=== PATIENT | female | born 1935 | race Caucasian/White ===

== ENCOUNTER → 2016-06-09 | Outpatient (CLI) | payer MEDICARE, OTHER ==
[~2016-06-09] MED LIST: ATOR20TA OR; ESOM20CA OR; POTA-167 OR; ZOLP10TA OR
[2016-06-09 16:22] LABS: Basophils # (auto) 0.1 uL; Basophils % (auto) 0.9 % (0.0-2.0); Eosinophils # (auto) 0.3 uL; Eosinophils % (auto) 4.9 % (0.0-7.0); Hematocrit 36.3 % (36.0-46.0); Lymphocytes # (auto) 1.6 uL; Lymphocytes % (auto) 26.6 % (10.0-50.0); Mean Corpuscular Hemoglobin 31.5 pg (28.0-32.0); Mean Corpuscular Volume 95.5 fL (80.0-100.0); Mean Platelet Volume 10.6 fL (7.4-10.4); Monocytes # (auto) 0.3 uL; Monocytes % (auto) 4.5 % (0.0-12.0); Neutrophils # (auto) 3.7 uL; Neutrophils % (auto) 63.1 % (37.0-80.0); Platelet Count (auto) 240 10^3/uL (140-450); Red Cell Distribution Width 14.2 % (11.6-16.0); Reticulocyte Count 1.06 % (0.5-1.5); White Blood Cell 5.9 10^3/uL (4.4-10.8)
[2016-06-09 17:12] LABS: Albumin 4.1 g/dL (3.4-5.0); Bilirubin, Direct 0.2 mg/dL (0-0.2); Bilirubin, Total 0.5 mg/dL (0.2-1.0); Total Protein 7.6 g/dL (6.4-8.2)
== END | disposition home or self-care (01) ==
LOC: Rad HDHVI 14:21
PROVIDERS: ATTEND Internal Medicine Cardiovascular Disease
DX: E78.00 Pure hypercholesterolemia, unspecified (principal); K74.1 Hepatic sclerosis; E03.9 Hypothyroidism, unspecified; D64.9 Anemia, unspecified
CPT/HCPCS: 36415; 80061; 80076; 84439; 84443; 85025; 85045; 93306

== ENCOUNTER → 2016-06-22 | Outpatient (CLI) | payer MEDICARE, OTHER ==
[~2016-06-22] MED LIST changes: +ADENOSINE 70 MG in GIVE UN-DILUTED 0 ML IV ONE; +ADENOSINE 90 MG/30 ML INJ IV ONE
== END | disposition home or self-care (01) ==
LOC: Rad HDHVI 13:46
PROVIDERS: ATTEND Internal Medicine Cardiovascular Disease
DX: R07.9 Chest pain, unspecified (principal); I10 Essential (primary) hypertension; I25.10 Atherosclerotic heart disease of native coronary artery without angina pectoris; J44.9 Chronic obstructive pulmonary disease, unspecified; E78.00 Pure hypercholesterolemia, unspecified
CPT/HCPCS: 78452; 93005; 96374; 96375; A9500; J0153

== ENCOUNTER → 2016-09-14 | Outpatient (CLI) | payer MEDICARE, OTHER ==
[~2016-09-14] MED LIST changes: -ADENOSINE 70 MG in GIVE UN-DILUTED 0 ML IV ONE; -ADENOSINE 90 MG/30 ML INJ IV ONE; +SODIUM CHLORIDE 0.9% 500 ML IV ONE
[2016-09-14 15:15] VITALS: BP 113/56
[2016-09-14 16:20] LABS: Basophils # (auto) 0.1 uL; Basophils % (auto) 1.7 % (0.0-2.0); CONDITION Y; Eosinophils # (auto) 0.3 uL; Eosinophils % (auto) 4.4 % (0.0-7.0); Hematocrit 36.1 % (36.0-46.0); Hemoglobin 11.9 g/dL (12.2-16.2); Lymphocytes # (auto) 2.3 uL; Lymphocytes % (auto) 35.4 % (10.0-50.0); Mean Corpuscular Hemoglobin 31.5 pg (28.0-32.0); Mean Corpuscular Hgb Conc. 32.9 g/dL (32.0-36.0); Mean Corpuscular Volume 95.5 fL (80.0-100.0); Mean Platelet Volume 12.1 fL (7.4-10.4); Monocytes # (auto) 0.5 uL; Monocytes % (auto) 8.2 % (0.0-12.0); Neutrophils # (auto) 3.3 uL; Neutrophils % (auto) 50.3 % (37.0-80.0); Platelet Count (auto) 167 10^3/uL (140-450); Red Cell Distribution Width 13.4 % (11.6-16.0); SUSPECT SEE PRINTOUT; White Blood Cell 6.5 10^3/uL (4.4-10.8)
[2016-09-14 16:41] LABS: BUN/Creatinine Ratio 18.1; Calcium 9.1 mg/dL (8.5-10.1); Potassium 4.9 mmol/L (3.5-5.1)
[2016-09-14 17:30] VITALS: BP 101/61
== END | disposition home or self-care (01) ==
LOC: CHF HDHVI 15:15
PROVIDERS: ATTEND Internal Medicine Cardiovascular Disease
DX: I10 Essential (primary) hypertension (principal); D64.9 Anemia, unspecified
CPT/HCPCS: 36415; 80048; 85025; 96360; 96361; G0463

== ENCOUNTER → 2016-09-18 | Outpatient (CLI) | payer MEDICARE, OTHER ==
[~2016-09-18] MED LIST changes: +ATO40T PO; +FERR325T PO; +OLME1TAB19 PO
[2016-09-18 15:45] VITALS: BP 128/65
[2016-09-18 16:59] LABS: Potassium 5.5 mmol/L (3.5-5.1)
== END | disposition home or self-care (01) ==
LOC: CHF HDHVI 14:14
PROVIDERS: ATTEND Internal Medicine Cardiovascular Disease
DX: N28.9 Disorder of kidney and ureter, unspecified (principal); R94.4 Abnormal results of kidney function studies; E87.6 Hypokalemia; I25.10 Atherosclerotic heart disease of native coronary artery without angina pectoris; R53.83 Other fatigue
CPT/HCPCS: 36415; 82565; 84132; 84520; 96360; G0463

== ENCOUNTER → 2016-09-23 | Outpatient (CLI) | payer MEDICARE, OTHER ==
[~2016-09-23] MED LIST changes: -SODIUM CHLORIDE 0.9% 500 ML IV ONE; +SODIUM POLYSTYRENE SULF 15GM/60ML SUSP ONE; +SODIUM POLYSTYRENE SULF 15GM/60ML SUSP PO ONE
[2016-09-23 12:00] VITALS: BP 115/61
[2016-09-23 12:30] VITALS: BP 133/68
[2016-09-23 17:13] LABS: Potassium 4.4 mmol/L (3.5-5.1)
== END | disposition home or self-care (01) ==
LOC: CHF HDHVI 12:02
PROVIDERS: ATTEND Internal Medicine Cardiovascular Disease
DX: N28.9 Disorder of kidney and ureter, unspecified (principal); R94.4 Abnormal results of kidney function studies; E87.5 Hyperkalemia; N17.9 Acute kidney failure, unspecified
CPT/HCPCS: 36415; 82565; 84132; 84520; G0463

== ENCOUNTER → 2016-10-01 | Outpatient (CLI) | payer MEDICARE, OTHER ==
[~2016-10-01] MED LIST changes: -ATOR20TA OR; -SODIUM POLYSTYRENE SULF 15GM/60ML SUSP ONE; -SODIUM POLYSTYRENE SULF 15GM/60ML SUSP PO ONE
== END | disposition home or self-care (01) ==
LOC: Rad HDHVI 15:07
PROVIDERS: ATTEND Internal Medicine Cardiovascular Disease
DX: R07.89 Other chest pain (principal)
CPT/HCPCS: 93306

== ENCOUNTER → 2017-08-04 | Outpatient (CLI) | payer MEDICARE, OTHER ==
[~2017-08-04] MED LIST changes: +ADENOSINE 70 MG in GIVE UN-DILUTED 0 ML IV ONE; +ADENOSINE 90 MG/30 ML INJ IV ONE; +FERR-20 PO; -FERR325T PO
== END | disposition home or self-care (01) ==
LOC: Rad HDHVI 13:41
PROVIDERS: ATTEND Internal Medicine Cardiovascular Disease
DX: I51.7 Cardiomegaly (principal); J44.9 Chronic obstructive pulmonary disease, unspecified; K52.9 Noninfective gastroenteritis and colitis, unspecified; N28.9 Disorder of kidney and ureter, unspecified; I10 Essential (primary) hypertension; E03.9 Hypothyroidism, unspecified; E78.00 Pure hypercholesterolemia, unspecified
CPT/HCPCS: 78452; 93005; 93306; 96374; 96375; A9500; J0153

== ENCOUNTER → 2017-08-25 | Outpatient (CLI) | payer MEDICARE, OTHER ==
[~2017-08-25] MED LIST changes: -ADENOSINE 70 MG in GIVE UN-DILUTED 0 ML IV ONE; -ADENOSINE 90 MG/30 ML INJ IV ONE
== END | disposition home or self-care (01) ==
LOC: Rad HDHVI 15:10
PROVIDERS: ATTEND Internal Medicine Cardiovascular Disease
DX: M50.222 Other cervical disc displacement at C5-C6 level (principal); M25.78 Osteophyte, vertebrae; M48.02 Spinal stenosis, cervical region; I10 Essential (primary) hypertension; E03.9 Hypothyroidism, unspecified; J44.9 Chronic obstructive pulmonary disease, unspecified
CPT/HCPCS: 72125

== ENCOUNTER 2017-09-21 06:33 | Inpatient (IN) | payer MEDICARE, OTHER ==
[2017-09-17 15:55] LABS: Albumin 3.7 g/dL (3.4-5.0); BUN/Creatinine Ratio 26.3; Bilirubin, Total 0.5 mg/dL (0.2-1.0); Calcium 9.6 mg/dL (8.5-10.1); Potassium 3.9 mmol/L (3.5-5.1)
[2017-09-17 15:58] LABS: Basophils # (auto) 0.1 uL; Basophils % (auto) 1.2 % (0.0-2.0); Eosinophils # (auto) 0 uL; Eosinophils % (auto) 0.7 % (0.0-7.0); Hematocrit 37.6 % (36.0-46.0); Hemoglobin 12.7 g/dL (12.2-16.2); INR 0.93 (0.9-1.15); Lymphocytes # (auto) 1.6 uL; Lymphocytes % (auto) 22.9 % (10.0-50.0); Mean Corpuscular Hemoglobin 32.2 pg (28.0-32.0); Mean Corpuscular Hgb Conc. 33.7 g/dL (32.0-36.0); Mean Corpuscular Volume 95.4 fL (80.0-100.0); Monocytes # (auto) 0.6 uL; Monocytes % (auto) 9.5 % (0.0-12.0); Neutrophils # (auto) 4.5 uL; Neutrophils % (auto) 65.7 % (37.0-80.0); Partial Thromboplastin Time 29.6 sec (23.78-33.04); Platelet Count (auto) 281 10^3/uL (140-450); Red Blood Cells 3.94 10^6/uL (4.0-5.20); Red Cell Distribution Width 13.8 % (11.8-14.3); White Blood Cell 6.8 10^3/uL (4.4-10.8)
[~2017-09-21] VITALS: Ht 167.6 cm; Wt 98.6 kg
[~2017-09-21 06:33] MED LIST changes: +ASCO500T11 PO; +B-COCAP4 OR; +GINK500C PO; +OMEG120015 PO; +PANC1CAP30 PO; +VITA400T4 PO
[2017-09-21] MEDS ORDERED: ceFAZolin 1GM/50ML 50 ML IV ONE (06:42)
[2017-09-21] MEDS ORDERED: TETRACAINE 1% INJ 2 ML VIAL IJ ONE (07:02)
[2017-09-21] MEDS ORDERED: SUCCINYLCHOLINE CHLORIDE 20 MG/ML 10ML VIAL IV ONE ×2 (07:18→07:23)
[2017-09-21] MEDS ORDERED: ETOMIDATE (2MG/ML) 20ML VIAL IV ONE (07:18)
[2017-09-21] MEDS ORDERED: PHENYLEPHRINE HCL 10 MG/ML VL IV ONE (07:18)
[2017-09-21] MEDS ORDERED: MIDAZOLAM HCL 1MG/1ML-2 ML VIAL ONE (07:36)
[2017-09-21] MEDS ORDERED: MEPERIDINE HCL (50 MG/ML) 1 ML VIAL ONE (07:36)
[2017-09-21] MEDS ORDERED: fentaNYL CITRATE 5 ML ONE (07:36)
[2017-09-21] MEDS ORDERED: fentaNYL CITRATE 100 MCG/2 ML VL ONE (07:36)
[2017-09-21] MEDS ORDERED: DEXAMETHASONE SOD PHOS 10MG/1ML VIAL INJ ONE (07:56)
[2017-09-21] MEDS ORDERED: ePHEDrine SULFATE 50 MG/ML AMP IV PRN (08:15)
[2017-09-21] MEDS ORDERED: MORPHINE SULF INJ 2 MG/ML SYRINGE 1ML IV PRN (08:15)
[2017-09-21] MEDS ORDERED: LABETALOL HCL 5 MG/ML 4ML SYRINGE IV PRN (08:15)
[2017-09-21] MEDS ORDERED: MIDAZOLAM HCL 1MG/1ML-2 ML VIAL IV PRN (08:15)
[2017-09-21] MEDS ORDERED: ONDANSETRON HCL 4 MG/2 ML VIAL IV ONE (08:15)
[2017-09-21] MEDS ORDERED: KETOROLAC TROMETH 30 MG/ML 1ML VIAL IV ONE (08:15)
[2017-09-21] MEDS ORDERED: PROPOFOL 10 MG/ML 20 ML IV ONE (08:19)
[2017-09-21] MEDS ORDERED: fentaNYL CITRATE 100 MCG/2 ML VL IV ONE (09:00)
[2017-09-21] MEDS ORDERED: LIDOCAINE W/ EPINEPHRINE 2% INJ 20ML VIAL ONE (09:00)
[2017-09-21] MEDS ORDERED: BUPIVACAINE HCL 50 ML ONE (09:00)
[2017-09-21] MEDS ORDERED: MORPHINE SULF INJ 2 MG/ML SYRINGE 1ML IV ONE (10:00)
[2017-09-21] MEDS ORDERED: LACTATED RINGER'S 1,000 ML IV SCH (10:57)
[2017-09-21] MEDS ORDERED: TEMAZEPAM 15 MG CAP PO PRN (11:00)
[2017-09-21] MEDS ORDERED: ACETAMINOPHEN 325 MG TAB PO PRN (11:00)
[2017-09-21] MEDS ORDERED: HYDROmorphone HCL 2 MG/ML VL IV PRN (11:00)
[2017-09-21] MEDS ORDERED: NITROGLYCERIN 0.4 MG SL TAB SL PRN (11:00)
[2017-09-21] MEDS: ceFAZolin 1GM/50ML 50 ML IV SCH ×2 (11:00→18:35)
[2017-09-21] MEDS: HYDROmorphone HCL 2 MG/ML VL IV PRN ×2 (11:25→11:35)
[2017-09-21 13:40] VITALS: BP 119/52
[2017-09-21] MEDS: SODIUM CHLOR 0.9% PF (SALINE LOCK) 10ML VIAL/SYR IV SCH ×2 (14:20→22:00)
[2017-09-21 14:21] VITALS: BP 119/52
[2017-09-21 17:18] VITALS: BP 108/48
[2017-09-21 21:36] VITALS: BP 90/31
[2017-09-21] MEDS: DOCUSATE SOD 100 MG CAP PO SCH (22:00)
[2017-09-22] MEDS: POTASSIUM CHL 10 Meq TABLET PO SCH ×2 (01:05→22:08)
[2017-09-22] MEDS: oxyCODONE ER 10 MG TAB PO SCH ×3 (01:05→22:09)
[2017-09-22] MEDS: FERROUS SULFATE 325 MG TAB PO SCH ×2 (01:05→22:09)
[2017-09-22] MEDS: ceFAZolin 1GM/50ML 50 ML IV SCH (01:06)
[2017-09-22] MEDS: ZOLPIDEM TARTRATE 5 MG TAB PO PRN (01:06)
[2017-09-22 04:40] VITALS: BP 92/49
[2017-09-22 06:26] LABS: Hematocrit 27.1 % (36.0-46.0); Hemoglobin 9.2 g/dL (12.2-16.2)
[2017-09-22] MEDS: SODIUM CHLOR 0.9% PF (SALINE LOCK) 10ML VIAL/SYR IV SCH ×3 (06:26→22:29)
[2017-09-22 06:31] LABS: BUN/Creatinine Ratio 25.2; Calcium 7.8 mg/dL (8.5-10.1); Potassium 4.1 mmol/L (3.5-5.1)
[2017-09-22] MEDS: MORPHINE SULF INJ 2 MG/ML SYRINGE 1ML IV PRN ×5 (07:51→20:29)
[2017-09-22 09:00] VITALS: BP 103/50
[2017-09-22] MEDS: ENOXAPARIN SOD 40 MG/0.4 ML SYRINGE SC SCH (11:16)
[2017-09-22] MEDS: DOCUSATE SOD 100 MG CAP PO SCH ×2 (11:16→22:10)
[2017-09-22 17:00] VITALS: BP 100/48
[2017-09-22 22:00] VITALS: BP 123/49
[2017-09-23] VITALS (10 sets, daily range): BP systolic 101–140; BP diastolic 45–72
[2017-09-23] MEDS: MORPHINE SULF INJ 2 MG/ML SYRINGE 1ML IV PRN ×7 (00:18→22:21)
[2017-09-23] MEDS: SODIUM CHLOR 0.9% PF (SALINE LOCK) 10ML VIAL/SYR IV SCH ×4 (05:10→22:21)
[2017-09-23 10:23] LABS: Hematocrit 25.7 % (36.0-46.0); Hemoglobin 8.7 g/dL (12.2-16.2)
[2017-09-23] MEDS: DOCUSATE SOD 100 MG CAP PO SCH ×2 (10:45→20:57)
[2017-09-23] MEDS: oxyCODONE ER 10 MG TAB PO SCH ×2 (10:45→20:58)
[2017-09-23] MEDS: ENOXAPARIN SOD 40 MG/0.4 ML SYRINGE SC SCH (10:45)
[2017-09-23] MEDS: ZOLPIDEM TARTRATE 5 MG TAB PO PRN (20:57)
[2017-09-23] MEDS: POTASSIUM CHL 10 Meq TABLET PO SCH (20:58)
[2017-09-23] MEDS: FERROUS SULFATE 325 MG TAB PO SCH (22:21)
[2017-09-24 05:00] VITALS: BP 124/61
[2017-09-24] MEDS: MORPHINE SULF INJ 2 MG/ML SYRINGE 1ML IV PRN ×4 (05:43→22:36)
[2017-09-24 06:53] LABS: BUN/Creatinine Ratio 20.4; Calcium 8.8 mg/dL (8.5-10.1); Potassium 4.3 mmol/L (3.5-5.1)
[2017-09-24 07:42] LABS: Hemoglobin 10.6 g/dL (12.2-16.2)
[2017-09-24 08:12] VITALS: BP 97/53
[2017-09-24] MEDS: ENOXAPARIN SOD 40 MG/0.4 ML SYRINGE SC SCH (09:44)
[2017-09-24] MEDS: oxyCODONE ER 10 MG TAB PO SCH ×2 (09:45→21:09)
[2017-09-24] MEDS: DOCUSATE SOD 100 MG CAP PO SCH ×2 (09:45→21:09)
[2017-09-24 12:02] VITALS: BP 114/62
[2017-09-24] MEDS: SODIUM CHLOR 0.9% PF (SALINE LOCK) 10ML VIAL/SYR IV SCH ×2 (12:22→14:33)
[2017-09-24] MEDS: HYDROcodone-ACET 10/325MG TAB PO PRN (14:54)
[2017-09-24 16:26] VITALS: BP 115/68
[2017-09-24] MEDS: POTASSIUM CHL 10 Meq TABLET PO SCH (21:09)
[2017-09-24] MEDS: FERROUS SULFATE 325 MG TAB PO SCH (21:09)
[2017-09-24 22:00] VITALS: BP 103/53
[2017-09-25] MEDS: MORPHINE SULF INJ 2 MG/ML SYRINGE 1ML IV PRN ×2 (03:29→20:22)
[2017-09-25 06:00] VITALS: BP 106/53
[2017-09-25] MEDS: SODIUM CHLOR 0.9% PF (SALINE LOCK) 10ML VIAL/SYR IV SCH ×3 (06:17→21:32)
[2017-09-25 06:42] LABS: Hematocrit 29.4 % (36.0-46.0); Hemoglobin 9.9 g/dL (12.2-16.2)
[2017-09-25 09:00] VITALS: BP 112/47
[2017-09-25] MEDS: DOCUSATE SOD 100 MG CAP PO SCH ×2 (09:18→21:32)
[2017-09-25] MEDS: oxyCODONE ER 10 MG TAB PO SCH ×2 (09:18→21:32)
[2017-09-25] MEDS: ENOXAPARIN SOD 40 MG/0.4 ML SYRINGE SC SCH (09:19)
[2017-09-25 13:19] VITALS: BP 114/60
[2017-09-25] MEDS: HYDROcodone-ACET 10/325MG TAB PO PRN (14:21)
[2017-09-25 17:00] VITALS: BP_SYST 109; BP_SYST 114; BP_DIAS 60
[2017-09-25] MEDS ORDERED: HYDROmorphone HCL 2 MG/ML VL IM PRN (17:15)
[2017-09-25 20:00] VITALS: BP 118/58
[2017-09-25] MEDS: FERROUS SULFATE 325 MG TAB PO SCH (21:32)
[2017-09-25] MEDS: POTASSIUM CHL 10 Meq TABLET PO SCH (21:33)
[2017-09-25 22:08] VITALS: BP 118/58
[2017-09-26] VITALS (7 sets, daily range): BP systolic 114–122; BP diastolic 51–64
[2017-09-26] MEDS ORDERED: diphenhdrAMINE HCL 25 MG CAP PO ONE (01:00)
[2017-09-26] MEDS: MORPHINE SULF INJ 2 MG/ML SYRINGE 1ML IV PRN ×5 (01:31→22:36)
[2017-09-26] MEDS: SODIUM CHLOR 0.9% PF (SALINE LOCK) 10ML VIAL/SYR IV SCH ×3 (06:08→22:12)
[2017-09-26] MEDS: DOCUSATE SOD 100 MG CAP PO SCH ×2 (09:55→22:12)
[2017-09-26] MEDS: oxyCODONE ER 10 MG TAB PO SCH ×2 (09:55→22:12)
[2017-09-26] MEDS: ENOXAPARIN SOD 40 MG/0.4 ML SYRINGE SC SCH (09:55)
[2017-09-26] MEDS ORDERED: ONDANSETRON ODT 4 MG TAB PO PRN (12:00)
[2017-09-26] MEDS: HYDROcodone-ACET 10/325MG TAB PO PRN (18:06)
[2017-09-26] MEDS: POTASSIUM CHL 10 Meq TABLET PO SCH (22:12)
[2017-09-26] MEDS: FERROUS SULFATE 325 MG TAB PO SCH (22:13)
[2017-09-27] MEDS: HYDROcodone-ACET 10/325MG TAB PO PRN ×4 (00:48→21:06)
[2017-09-27] MEDS: MORPHINE SULF INJ 2 MG/ML SYRINGE 1ML IV PRN (03:54)
[2017-09-27 05:00] VITALS: BP 116/59
[2017-09-27] MEDS: SODIUM CHLOR 0.9% PF (SALINE LOCK) 10ML VIAL/SYR IV SCH ×3 (06:08→23:00)
[2017-09-27 08:35] VITALS: BP 105/57
[2017-09-27] MEDS: oxyCODONE ER 10 MG TAB PO SCH ×2 (09:38→23:00)
[2017-09-27] MEDS: DOCUSATE SOD 100 MG CAP PO SCH ×2 (09:38→23:35)
[2017-09-27] MEDS: ENOXAPARIN SOD 40 MG/0.4 ML SYRINGE SC SCH (09:38)
[2017-09-27 13:47] VITALS: BP 112/51
[2017-09-27 17:01] VITALS: BP 108/56
[2017-09-27 22:00] VITALS: BP 105/57
[2017-09-27] MEDS: POTASSIUM CHL 10 Meq TABLET PO SCH (23:00)
[2017-09-27] MEDS: FERROUS SULFATE 325 MG TAB PO SCH (23:00)
[2017-09-28 05:00] VITALS: BP 124/48
[2017-09-28] MEDS: SODIUM CHLOR 0.9% PF (SALINE LOCK) 10ML VIAL/SYR IV SCH ×3 (05:53→21:41)
[2017-09-28] MEDS: HYDROcodone-ACET 10/325MG TAB PO PRN (08:21)
[2017-09-28 08:47] VITALS: BP 119/62
[2017-09-28] MEDS: DOCUSATE SOD 100 MG CAP PO SCH ×2 (10:40→21:40)
[2017-09-28] MEDS: oxyCODONE ER 10 MG TAB PO SCH ×2 (10:40→21:41)
[2017-09-28] MEDS: ENOXAPARIN SOD 40 MG/0.4 ML SYRINGE SC SCH (10:40)
[2017-09-28 12:06] VITALS: BP 116/68
[2017-09-28] MEDS ORDERED: diphenhdrAMINE HCL 25 MG CAP PO PRN (14:30)
[2017-09-28 16:50] VITALS: BP 110/55
[2017-09-28] MEDS: Nepro With Carbsteady ButterPecan 8oz Carton PO SCH (17:36)
[2017-09-28] MEDS: FERROUS SULFATE 325 MG TAB PO SCH (21:39)
[2017-09-28] MEDS: POTASSIUM CHL 10 Meq TABLET PO SCH (21:40)
[2017-09-28 22:00] VITALS: BP 113/53
[2017-09-28] MEDS: ZOLPIDEM TARTRATE 5 MG TAB PO PRN (23:08)
[2017-09-28] MEDS: ONDANSETRON ODT 4 MG TAB PO PRN (23:08)
[2017-09-29 05:00] VITALS: BP 123/64
[2017-09-29] MEDS: SODIUM CHLOR 0.9% PF (SALINE LOCK) 10ML VIAL/SYR IV SCH ×4 (05:58→21:45)
[2017-09-29] MEDS: Nepro With Carbsteady ButterPecan 8oz Carton PO SCH ×3 (08:00→17:52)
[2017-09-29 09:00] VITALS: BP 121/60
[2017-09-29] MEDS: DOCUSATE SOD 100 MG CAP PO SCH ×2 (09:03→21:42)
[2017-09-29] MEDS: ENOXAPARIN SOD 40 MG/0.4 ML SYRINGE SC SCH (09:04)
[2017-09-29] MEDS: oxyCODONE ER 10 MG TAB PO SCH ×2 (09:04→21:40)
[2017-09-29 13:00] VITALS: BP 104/49
[2017-09-29] MEDS: HYDROcodone-ACET 10/325MG TAB PO PRN ×2 (14:56→20:46)
[2017-09-29 17:00] VITALS: BP 102/51
[2017-09-29] MEDS: POTASSIUM CHL 10 Meq TABLET PO SCH (21:39)
[2017-09-29] MEDS: FERROUS SULFATE 325 MG TAB PO SCH (21:39)
[2017-09-29 22:00] VITALS: BP_SYST 121; BP_SYST 145; BP_DIAS 56; BP_DIAS 87
[2017-09-29] MEDS: ZOLPIDEM TARTRATE 5 MG TAB PO PRN (23:05)
[2017-09-29] MEDS: ONDANSETRON ODT 4 MG TAB PO PRN (23:05)
[2017-09-30 05:00] VITALS: BP 118/55
[2017-09-30] MEDS: HYDROcodone-ACET 10/325MG TAB PO PRN ×3 (06:51→16:42)
[2017-09-30] MEDS: Nepro With Carbsteady ButterPecan 8oz Carton PO SCH ×2 (08:00→12:00)
[2017-09-30 09:00] VITALS: BP 100/49
[2017-09-30] MEDS: DOCUSATE SOD 100 MG CAP PO SCH (09:43)
[2017-09-30] MEDS: ENOXAPARIN SOD 40 MG/0.4 ML SYRINGE SC SCH (09:43)
[2017-09-30] MEDS: oxyCODONE ER 10 MG TAB PO SCH (09:44)
[2017-09-30 13:00] VITALS: BP 103/47
[2017-09-30] MEDS: SODIUM CHLOR 0.9% PF (SALINE LOCK) 10ML VIAL/SYR IV SCH (14:00)
== END 2017-09-30 15:25 | disposition home or self-care (01) | DRG 470 ==
LOC: SUR 06:33 → TELE-CENTR 06:34
PROVIDERS: ADMIT Orthopaedic Surgery; ATTEND Internal Medicine Cardiovascular Disease
PROC: 0MBL0ZZ Excision of Right Hip Bursa and Ligament, Open Approach (ICD-10-PCS; 2017-09-21)
PROC: 0SR90JA Replacement of Right Hip Joint with Synthetic Substitute, Uncemented, Open Approach (ICD-10-PCS; principal; 2017-09-21 07:35)
PROC: 30233N1 Transfusion of Nonautologous Red Blood Cells into Peripheral Vein, Percutaneous Approach (ICD-10-PCS; 2017-09-23)
DX: M16.11 Unilateral primary osteoarthritis, right hip (principal); N18.4 Chronic kidney disease, stage 4 (severe); N17.9 Acute kidney failure, unspecified; E66.01 Morbid (severe) obesity due to excess calories; D63.8 Anemia in other chronic diseases classified elsewhere; I12.9 Hypertensive chronic kidney disease with stage 1 through stage 4 chronic kidney disease, or unspecified chronic kidney disease; G89.29 Other chronic pain; E78.5 Hyperlipidemia, unspecified; D50.0 Iron deficiency anemia secondary to blood loss (chronic); J44.9 Chronic obstructive pulmonary disease, unspecified; M70.61 Trochanteric bursitis, right hip; Z68.35 Body mass index [BMI] 35.0-35.9, adult
CPT/HCPCS: 36415; 73501; 80048; 80053; 85014; 85018; 85025; 85610; 85730; 86850; 86870; 86900; 86901; 86902; 86922; 97110; 97116; 97530; J0330; J0690; J1100; J1885; J2250; J2704; J3490; Q0162

== ENCOUNTER → 2017-12-01 | Outpatient (CLI) | payer MEDICARE, OTHER ==
[2017-12-01 16:13] LABS: Urine Blood Negative /uL (Negative); Urine Specific Gravity 1.006 (1.001-1.035)
[2017-12-01 16:26] LABS: Basophils # (auto) 0.2 uL; Basophils % (auto) 1.2 % (0.0-2.0); Eosinophils # (auto) 0.2 uL
[2017-12-01 16:33] LABS: Alanine Aminotransferase 27 U/L (13-56); Albumin 3.6 g/dL (3.4-5.0); Alkaline Phosphatase 114 U/L (45-117); Anion Gap 8 (5-15); Aspartate Aminotransferase 27 U/L (15-37); BUN/Creatinine Ratio 16.7; Bilirubin, Direct < 0.1 mg/dL (0-0.2); Bilirubin, Total 0.3 mg/dL (0.2-1.0); Blood Urea Nitrogen 20 mg/dL (7-18); Calcium 9.3 mg/dL (8.5-10.1); Carbon Dioxide 22 mmol/L (21-32); Chloride 106 mmol/L (98-107); GFR African American 56 mL/min; GFR Non-African American 46 mL/min; Glucose 98 mg/dL (74-106); Potassium 3.5 mmol/L (3.5-5.1); Sodium 136 mmol/L (136-145); Total Protein 8.2 g/dL (6.4-8.2)
[2017-12-01 16:42] LABS: Eosinophils % (auto) 1.2 % (0.0-7.0); Hematocrit 42.7 % (36.0-46.0); Hemoglobin 13.6 g/dL (12.2-16.2); Lymphocytes # (auto) 3.8 uL; Lymphocytes % (auto) 26.1 % (10.0-50.0); Mean Corpuscular Hemoglobin 28.9 pg (28.0-32.0); Mean Corpuscular Hgb Conc. 31.9 g/dL (32.0-36.0); Mean Corpuscular Volume 90.8 fL (80.0-100.0); Monocytes # (auto) 1.2 uL; Monocytes % (auto) 8.4 % (0.0-12.0); Neutrophils # (auto) 9.3 uL; Neutrophils % (auto) 63.1 % (37.0-80.0); Nucleated Red Blood Cells % 0.3 %; Platelet Count (auto) 431 10^3/uL (140-450); Red Blood Cells 4.71 10^6/uL (4.0-5.20); Red Cell Distribution Width 16.6 % (11.8-14.3); White Blood Cell 14.7 10^3/uL (4.4-10.8)
== END | disposition home or self-care (01) ==
LOC: LAB 13:18
PROVIDERS: ATTEND Internal Medicine Cardiovascular Disease
DX: D64.9 Anemia, unspecified (principal); I10 Essential (primary) hypertension; N39.0 Urinary tract infection, site not specified; K74.1 Hepatic sclerosis; J44.9 Chronic obstructive pulmonary disease, unspecified
CPT/HCPCS: 36415; 80048; 80076; 81003; 85025; 87086; 87088; 87186

== ENCOUNTER 2018-08-13 19:59 | Emergency (ER) | payer MEDICARE, OTHER ==
[~2018-08-13] VITALS: Ht 172.7 cm; Wt 72.6 kg
[2018-08-13 21:42] LABS: Basophils # (auto) 0.1 uL; Basophils % (auto) 0.7 % (0.0-2.0); Eosinophils # (auto) 0.1 uL; Eosinophils % (auto) 1.3 % (0.0-7.0); Hematocrit 43.3 % (36.0-46.0); Hemoglobin 14.6 g/dL (12.2-16.2); Lymphocytes # (auto) 2.3 uL; Lymphocytes % (auto) 26.4 % (10.0-50.0); Mean Corpuscular Hemoglobin 30.8 pg (28.0-32.0); Mean Corpuscular Hgb Conc. 33.7 g/dL (32.0-36.0); Mean Corpuscular Volume 91.3 fL (80.0-100.0); Monocytes # (auto) 0.6 uL; Monocytes % (auto) 6.7 % (0.0-12.0); Neutrophils # (auto) 5.6 uL; Neutrophils % (auto) 64.9 % (37.0-80.0); Platelet Count (auto) 216 10^3/uL (140-450); Red Blood Cells 4.74 10^6/uL (4.0-5.20); Red Cell Distribution Width 13.5 % (11.8-14.3); White Blood Cell 8.7 10^3/uL (4.4-10.8)
[2018-08-13 21:47] LABS: Alanine Aminotransferase 29 U/L (13-56); Albumin 3.9 g/dL (3.4-5.0); Anion Gap 10 (5-15); Aspartate Aminotransferase 25 U/L (15-37); Blood Urea Nitrogen 22 mg/dL (7-18); Calcium 9.7 mg/dL (8.5-10.1); Carbon Dioxide 26 mmol/L (21-32); Chloride 104 mmol/L (98-107); Glucose 100 mg/dL (74-106); Potassium 3.2 mmol/L (3.5-5.1); Sodium 140 mmol/L (136-145)
[2018-08-13 21:52] LABS: Alkaline Phosphatase 145 U/L (45-117); BUN/Creatinine Ratio 17.5; Bilirubin, Total 0.8 mg/dL (0.2-1.0); GFR African American 52 mL/min; GFR Non-African American 43 mL/min; Total Protein 7.9 g/dL (6.4-8.2)
[2018-08-14] MEDS ORDERED: SODIUM CHLORIDE 0.9% 500 ML IV ONE (00:33)
[2018-08-14] MEDS ORDERED: POTASSIUM CHL 20 Meq TABLET PO ONE (00:45)
[2018-08-14] MEDS ORDERED: LORazepam 0.5 MG TAB PO ONE (01:45)
[2018-08-14 03:45] VITALS: BP 132/78
== END 2018-08-14 06:13 | disposition home or self-care (01) ==
LOC: EDBD 19:59 → ER 20:01
DX: F41.9 Anxiety disorder, unspecified (principal); N28.9 Disorder of kidney and ureter, unspecified; M19.90 Unspecified osteoarthritis, unspecified site; J44.9 Chronic obstructive pulmonary disease, unspecified; E11.9 Type 2 diabetes mellitus without complications; I10 Essential (primary) hypertension; Z96.641 Presence of right artificial hip joint
CPT/HCPCS: 36415; 71045; 74018; 80053; 83690; 83880; 84484; 85025; 93005; 94761

== ENCOUNTER → 2018-10-05 | Outpatient (CLI) | payer MEDICARE, OTHER ==
[2018-10-05 15:46] LABS: Basophils # (auto) 0.1 uL; Basophils % (auto) 1.5 % (0.0-2.0); Eosinophils # (auto) 0.1 uL; Eosinophils % (auto) 2.1 % (0.0-7.0); Hematocrit 37.8 % (36.0-46.0); Hemoglobin 12.5 g/dL (12.2-16.2); Lymphocytes # (auto) 1.5 uL; Mean Corpuscular Hemoglobin 31.9 pg (28.0-32.0); Mean Corpuscular Hgb Conc. 33.1 g/dL (32.0-36.0); Mean Corpuscular Volume 96.1 fL (80.0-100.0); Monocytes # (auto) 0.4 uL; Monocytes % (auto) 7.9 % (0.0-12.0); Neutrophils # (auto) 3.1 uL; Neutrophils % (auto) 59.5 % (37.0-80.0); Nucleated Red Blood Cells % 0.2 %; Platelet Count (auto) 227 10^3/uL (140-450); Red Blood Cells 3.93 10^6/uL (4.0-5.20); Red Cell Distribution Width 16.1 % (11.8-14.3); White Blood Cell 5.3 10^3/uL (4.4-10.8)
[2018-10-05 16:04] LABS: BUN/Creatinine Ratio 10.9; Blood Urea Nitrogen 13 mg/dL (7-18); Calcium 9.1 mg/dL (8.5-10.1); Carbon Dioxide 22 mmol/L (21-32); GFR African American 56 mL/min; GFR Non-African American 46 mL/min; Glucose 81 mg/dL (74-106); Magnesium 1.6 mg/dL (1.6-2.6)
[2018-10-05 16:08] LABS: Anion Gap 10 (5-15); Chloride 108 mmol/L (98-107); Potassium 4.2 mmol/L (3.5-5.1); Sodium 140 mmol/L (136-145)
== END | disposition home or self-care (01) ==
LOC: LAB 13:56
PROVIDERS: ATTEND Internal Medicine Cardiovascular Disease
DX: D64.9 Anemia, unspecified (principal); E83.40 Disorders of magnesium metabolism, unspecified; I10 Essential (primary) hypertension
CPT/HCPCS: 36415; 80048; 83735; 85025

== ENCOUNTER → 2019-02-17 | Outpatient (CLI) | payer MEDICARE, OTHER ==
[2019-02-17 15:59] LABS: Urine Blood 1+ /uL (Negative); Urine Specific Gravity 1.013 (1.001-1.035)
== END | disposition home or self-care (01) ==
LOC: LAB 13:36
PROVIDERS: ATTEND Internal Medicine Cardiovascular Disease
DX: N39.0 Urinary tract infection, site not specified (principal); R77.9 Abnormality of plasma protein, unspecified
CPT/HCPCS: 81003; 84156; 84166; 87086

== ENCOUNTER → 2019-04-10 | Outpatient (CLI) | payer MEDICARE, OTHER ==
[2019-04-10 16:03] LABS: Urine Blood Negative /uL (Negative); Urine Specific Gravity 1.027 (1.001-1.035)
== END | disposition home or self-care (01) ==
LOC: LAB 12:41
PROVIDERS: ATTEND Internal Medicine Cardiovascular Disease
DX: N39.0 Urinary tract infection, site not specified (principal)
CPT/HCPCS: 81003; 87086

== ENCOUNTER → 2019-08-08 | Outpatient (CLI) | payer MEDICARE, OTHER ==
[~2019-08-08] MED LIST changes: +ALPR0.25 PO; -ESOM20CA OR; +ESOM20CA PO; -OLME1TAB19 PO; +OLME1TAB67 PO; -POTA-167 OR; +POTA-167 PO; +TRAM50TA2 PO; +UMEC1AER IN; +ZOLP12.52 PO
[2019-08-08 11:00] VITALS: BP 121/57
[2019-08-08 11:57] VITALS: BP 125/61
[2019-08-08 15:57] LABS: Basophils # (auto) 0.1 10 ^3/uL (0-0.2); Eosinophils # (auto) 0.1 10 ^3/uL (0-0.8); Eosinophils % (auto) 1.3 % (0.0-7.0); Hematocrit 38.9 % (36.0-46.0); Hemoglobin 12.6 g/dL (12.2-16.2); Lymphocytes # (auto) 1.4 10 ^3/uL (0.4-5.4); Lymphocytes % (auto) 26.2 % (10.0-50.0); Mean Corpuscular Hemoglobin 31.8 pg (28.0-32.0); Mean Corpuscular Hgb Conc. 32.5 g/dL (32.0-36.0); Monocytes # (auto) 0.6 10 ^3/uL (0-1.3); Monocytes % (auto) 10.6 % (0.0-12.0); Neutrophils # (auto) 3.4 10 ^3/uL (1.6-8.6); Neutrophils % (auto) 60.9 % (37.0-80.0); Nucleated Red Blood Cells % 0.1 %; Platelet Count (auto) 219 10^3/uL (140-450); Red Blood Cells 3.97 10^6/uL (4.0-5.20); Red Cell Distribution Width 13.7 % (11.8-14.3); White Blood Cell 5.5 10^3/uL (4.4-10.8)
[2019-08-08 16:09] LABS: BUN/Creatinine Ratio 13.7
[2019-08-08 16:27] LABS: INR 1.01 (0.9-1.15); Partial Thromboplastin Time 28.2 sec (23.64-32.05)
== END | disposition home or self-care (01) ==
LOC: Rad HDHVI 11:10
PROVIDERS: ATTEND Internal Medicine Cardiovascular Disease
DX: Z01.812 Encounter for preprocedural laboratory examination (principal); K44.9 Diaphragmatic hernia without obstruction or gangrene; I70.8 Atherosclerosis of other arteries
CPT/HCPCS: 36415; 71046; 80048; 85025; 85610; 85730; 93005; G0463

== ENCOUNTER 2019-08-10 10:24 | Day surgery (SDC) | payer MEDICARE, OTHER ==
[~2019-08-10] VITALS: Ht 167.6 cm; Wt 90.7 kg
[~2019-08-10 10:24] MED LIST changes: -ATO40T PO; -B-COCAP4 OR; -OLME1TAB67 PO; -PANC1CAP30 PO; -ZOLP10TA OR
[2019-08-10] MEDS ORDERED: LIDOCAINE 2%HCL (LOCAL ANESTH.) INJ 20ML MDV ONE ×2 (12:05→12:22)
[2019-08-10] MEDS ORDERED: IOHEXOL 350 MG/ML 100ML IJ ONE (12:05)
[2019-08-10] MEDS ORDERED: fentaNYL CITRATE 100 MCG/2 ML VL ONE (12:14)
[2019-08-10] MEDS ORDERED: MIDAZOLAM HCL 1MG/1ML-2 ML VIAL ONE (12:14)
[2019-08-10] MEDS ORDERED: ANGIOMAX 250 MG VIAL IV ONE (12:17)
[2019-08-10] MEDS ORDERED: diphenhdrAMINE HCL 50 MG/1 ML VL ONE (12:18)
[2019-08-10] MEDS ORDERED: SODIUM CHL 0.9% 0 ML ONE (12:18)
== END 2019-08-10 15:31 | disposition home or self-care (01) ==
LOC: CATH 10:24
PROVIDERS: ATTEND Internal Medicine Cardiovascular Disease
DX: R06.02 Shortness of breath (principal); Z11.59 Encounter for screening for other viral diseases; J44.9 Chronic obstructive pulmonary disease, unspecified; G89.29 Other chronic pain; M19.90 Unspecified osteoarthritis, unspecified site; Z98.890 Other specified postprocedural states; Z79.899 Other long term (current) drug therapy
CPT/HCPCS: 93458; C1751; C1760; C1894; C9803; J1200; J1644; J2250; J3010; Q9967; U0003; 87635; 99152; 99153

== ENCOUNTER → 2020-04-01 | Outpatient (CLI) | payer OTHER ==
[~2020-04-01] MED LIST changes: +ATOR40TA52 PO; +DILT180C39 PO; +FURO40TA4 PO; +HYDR200T36 PO; +PANT40TA2 PO; +ROFL1TAB2 PO; +TRAZ1TAB12 PO
[2020-04-01 12:15] VITALS: BP 124/44
[2020-04-01 13:00] VITALS: BP 120/46
[2020-04-01 16:20] LABS: Basophils # (auto) 0.1 10 ^3/uL (0-0.2); Basophils % (auto) 1.4 % (0.0-2.0); Eosinophils # (auto) 0 10 ^3/uL (0-0.8); Hematocrit 36.8 % (36.0-46.0); Hemoglobin 12.2 g/dL (12.2-16.2); Mean Corpuscular Hemoglobin 31.2 pg (28.0-32.0); Mean Corpuscular Hgb Conc. 33.2 g/dL (32.0-36.0); Mean Corpuscular Volume 94.1 fL (80.0-100.0); Monocytes # (auto) 0.6 10 ^3/uL (0-1.3); Monocytes % (auto) 12.1 % (0.0-12.0); Neutrophils # (auto) 3.1 10 ^3/uL (1.6-8.6); Neutrophils % (auto) 64.5 % (37.0-80.0); Nucleated Red Blood Cells % 0.1 %; Platelet Count (auto) 203 10^3/uL (140-450); Red Blood Cells 3.91 10^6/uL (4.0-5.20); Red Cell Distribution Width 12.8 % (11.8-14.3); White Blood Cell 4.8 10^3/uL (4.4-10.8)
[2020-04-01 16:27] LABS: Calcium 9.5 mg/dL (8.5-10.1); Potassium 4.6 mmol/L (3.5-5.1)
[2020-04-01 16:48] LABS: INR 0.93 (0.9-1.15)
== END | disposition home or self-care (01) ==
LOC: Rad HDHVI 11:57
PROVIDERS: ATTEND Internal Medicine Cardiovascular Disease
DX: Z01.812 Encounter for preprocedural laboratory examination (principal); J98.11 Atelectasis; I51.7 Cardiomegaly; I70.0 Atherosclerosis of aorta; K44.9 Diaphragmatic hernia without obstruction or gangrene; I50.32 Chronic diastolic (congestive) heart failure
CPT/HCPCS: 36415; 71046; 80048; 85025; 85610; 85730; 93005; G0463

== ENCOUNTER 2020-04-04 07:13 | Day surgery (SDC) | payer OTHER ==
[~2020-04-04] VITALS: Ht 165.1 cm; Wt 86.2 kg
[~2020-04-04 07:13] MED LIST changes: -ALPR0.25 PO; -ASCO500T11 PO; -GINK500C PO; -OMEG120015 PO; -POTA-167 PO; -TRAM50TA2 PO; -UMEC1AER IN; -VITA400T4 PO; -ZOLP12.52 PO
[2020-04-04] MEDS ORDERED: LIDOCAINE 2%HCL (LOCAL ANESTH.) INJ 20ML MDV ONE ×2 (07:58→10:44)
[2020-04-04] MEDS ORDERED: fentaNYL CITRATE 100 MCG/2 ML VL ONE ×2 (09:14→10:41)
[2020-04-04] MEDS ORDERED: MIDAZOLAM HCL 1MG/1ML-2 ML VIAL ONE ×2 (09:15→10:42)
[2020-04-04] MEDS ORDERED: VANCOMYCIN 1GM/250ML 250 ML IV ONE ×2 (09:15)
[2020-04-04] MEDS ORDERED: VANCOMYCIN HCL 1000 MG VL ONE ×2 (09:15→10:42)
[2020-04-04] MEDS ORDERED: TRIAMCINOLONE 40MG/ML 1ML VIAL IX ONE ×2 (10:30)
[2020-04-04] MEDS ORDERED: ceFAZolin 1GM VL ONE (11:02)
[2020-04-04] MEDS ORDERED: HYDROcodone-ACET 5/325MG TAB PO PRN (11:45)
[2020-04-04] MEDS ORDERED: ACETAMINOPHEN 325 MG TAB PO PRN (11:45)
== END 2020-04-04 14:25 | disposition home or self-care (01) ==
LOC: CATH 07:13
PROVIDERS: ATTEND Internal Medicine Cardiovascular Disease
DX: Z45.018 Encounter for adjustment and management of other part of cardiac pacemaker (principal); I10 Essential (primary) hypertension; J44.9 Chronic obstructive pulmonary disease, unspecified; I11.0 Hypertensive heart disease with heart failure; K21.9 Gastro-esophageal reflux disease without esophagitis; M19.90 Unspecified osteoarthritis, unspecified site; E78.5 Hyperlipidemia, unspecified; E66.9 Obesity, unspecified; Z20.822 Contact with and (suspected) exposure to COVID-19; Z98.890 Other specified postprocedural states; Z79.899 Other long term (current) drug therapy; Z80.8 Family history of malignant neoplasm of other organs or systems; Z68.31 Body mass index [BMI] 31.0-31.9, adult
CPT/HCPCS: 33208; 71045; C1785; C1892; C1898; J0690; J2250; J3010; J3301; J3370; J7030; U0003; 99152; 99153

== ENCOUNTER → 2020-04-05 | Outpatient (CLI) | payer OTHER | END | disposition home or self-care (01) | LOC: Rad HDHVI 10:32 | PROVIDERS: ATTEND Internal Medicine Cardiovascular Disease | DX: J98.11 Atelectasis (principal); I70.0 Atherosclerosis of aorta; M47.814 Spondylosis without myelopathy or radiculopathy, thoracic region; Z95.0 Presence of cardiac pacemaker | CPT/HCPCS: 71046 ==

== ENCOUNTER → 2020-05-20 | Outpatient (CLI) | payer OTHER ==
[2020-05-20 15:59] LABS: Basophils # (auto) 0.1 10 ^3/uL (0-0.2); Basophils % (auto) 1.2 % (0.0-2.0); Eosinophils # (auto) 0 10 ^3/uL (0-0.8); Eosinophils % (auto) 0.5 % (0.0-7.0); Hematocrit 37.4 % (36.0-46.0); Hemoglobin 12.6 g/dL (12.2-16.2); Lymphocytes # (auto) 1.2 10 ^3/uL (0.4-5.4); Lymphocytes % (auto) 24.7 % (10.0-50.0); Mean Corpuscular Hemoglobin 31.8 pg (28.0-32.0); Mean Corpuscular Hgb Conc. 33.8 g/dL (32.0-36.0); Mean Corpuscular Volume 94.2 fL (80.0-100.0); Monocytes # (auto) 0.5 10 ^3/uL (0-1.3); Monocytes % (auto) 9.7 % (0.0-12.0); Neutrophils # (auto) 3.2 10 ^3/uL (1.6-8.6); Neutrophils % (auto) 63.9 % (37.0-80.0); Platelet Count (auto) 184 10^3/uL (140-450); Red Blood Cells 3.97 10^6/uL (4.0-5.20); Red Cell Distribution Width 13.2 % (11.8-14.3); White Blood Cell 5.1 10^3/uL (4.4-10.8)
[2020-05-20 16:09] LABS: Potassium 4.1 mmol/L (3.5-5.1)
[2020-05-20 16:11] LABS: Urine Blood Negative /uL (Negative)
[2020-05-20 16:16] LABS: Albumin 3.3 g/dL (3.4-5.0); BUN/Creatinine Ratio 14.2; Bilirubin, Total 0.4 mg/dL (0.2-1.0); Calcium 9.3 mg/dL (8.5-10.1); Total Protein 6.9 g/dL (6.4-8.2)
[2020-05-20 16:18] LABS: Free T4 (Free Thyroxine) 1.23 ng/dL (0.89-1.76)
== END | disposition home or self-care (01) ==
LOC: LAB 13:48
PROVIDERS: ATTEND Internal Medicine Cardiovascular Disease
DX: D51.3 Other dietary vitamin B12 deficiency anemia (principal); I10 Essential (primary) hypertension; E11.9 Type 2 diabetes mellitus without complications; E55.9 Vitamin D deficiency, unspecified; D64.9 Anemia, unspecified; R00.2 Palpitations; R53.1 Weakness; R30.0 Dysuria
CPT/HCPCS: 36415; 80053; 80061; 81003; 82306; 82607; 83036; 84439; 84443; 85025; 87086

== ENCOUNTER → 2020-05-22 | Outpatient (CLI) | payer OTHER ==
[~2020-05-22] VITALS: Ht 167.6 cm; Wt 97.5 kg
[~2020-05-22] MED LIST changes: +FLUCONAZOLE 200MG/100ML 100 ML IV ONE; +GENTAMICIN SULF 80 MG/2 ML VIAL ONE; +GENTAMICIN SULFATE 160 MG in D5W 5% 100 ML IV ONE; +cefTAZidime 1GM/50ML D5W 50 ML IV ONE; +cefTAZidime 2GM/NS 50 ML IV ONE
[2020-05-22 10:30] VITALS: BP 156/68
[2020-05-22 13:56] VITALS: BP 137/50
== END | disposition home or self-care (01) ==
LOC: CHF HDHVI 10:29
PROVIDERS: ATTEND Internal Medicine Cardiovascular Disease
DX: N39.0 Urinary tract infection, site not specified (principal); I11.0 Hypertensive heart disease with heart failure; I50.32 Chronic diastolic (congestive) heart failure; E11.9 Type 2 diabetes mellitus without complications; F41.9 Anxiety disorder, unspecified; K21.9 Gastro-esophageal reflux disease without esophagitis; E78.5 Hyperlipidemia, unspecified; M19.90 Unspecified osteoarthritis, unspecified site; Z79.899 Other long term (current) drug therapy
CPT/HCPCS: 96365; 96367; G0463; J0713; J1450; J1580; J7060

== ENCOUNTER → 2020-06-17 | Outpatient (CLI) | payer OTHER ==
[~2020-06-17] MED LIST changes: -FLUCONAZOLE 200MG/100ML 100 ML IV ONE; -GENTAMICIN SULF 80 MG/2 ML VIAL ONE; -GENTAMICIN SULFATE 160 MG in D5W 5% 100 ML IV ONE; -cefTAZidime 1GM/50ML D5W 50 ML IV ONE; -cefTAZidime 2GM/NS 50 ML IV ONE
[2020-06-17 16:52] LABS: Urine Blood Negative /uL (Negative); Urine Specific Gravity 1.028 (1.001-1.035)
== END | disposition home or self-care (01) ==
LOC: CHF HDHVI 13:45
PROVIDERS: ATTEND Internal Medicine Cardiovascular Disease
DX: E85.9 Amyloidosis, unspecified (principal)
CPT/HCPCS: 81003; 83883

== ENCOUNTER → 2020-07-25 | Outpatient (CLI) | payer OTHER ==
[2020-07-25 11:56] LABS: Urine Blood 1+ /uL (Negative); Urine Specific Gravity 1.026 (1.001-1.035)
[2020-07-25 11:59] LABS: Basophils # (auto) 0 10 ^3/uL (0-0.2); Basophils % (auto) 0.5 % (0.0-2.0); Eosinophils # (auto) 0.2 10 ^3/uL (0-0.8); Eosinophils % (auto) 2.1 % (0.0-7.0); Hematocrit 37.4 % (36.0-46.0); Hemoglobin 12.5 g/dL (12.2-16.2); Lymphocytes # (auto) 1.2 10 ^3/uL (0.4-5.4); Lymphocytes % (auto) 17.3 % (10.0-50.0); Mean Corpuscular Hemoglobin 31.4 pg (28.0-32.0); Mean Corpuscular Hgb Conc. 33.3 g/dL (32.0-36.0); Mean Corpuscular Volume 94.3 fL (80.0-100.0); Monocytes # (auto) 0.7 10 ^3/uL (0-1.3); Monocytes % (auto) 9.2 % (0.0-12.0); Neutrophils # (auto) 5.1 10 ^3/uL (1.6-8.6); Neutrophils % (auto) 70.9 % (37.0-80.0); Nucleated Red Blood Cells % 0.1 %; Platelet Count (auto) 161 10^3/uL (140-450); Red Blood Cells 3.97 10^6/uL (4.0-5.20); Red Cell Distribution Width 14.9 % (11.8-14.3); White Blood Cell 7.2 10^3/uL (4.4-10.8)
[2020-07-25 12:02] LABS: Potassium 4.1 mmol/L (3.5-5.1)
[2020-07-25 12:06] LABS: BUN/Creatinine Ratio 16.5; Calcium 8.9 mg/dL (8.5-10.1); Uric Acid 4.8 mg/dL (2.6-6.0)
[2020-07-25 12:16] LABS: Creatinine, Urine 128 mg/dL (30.0-125.0); Protein, Urine 73.7 mg/dL (0.0-11.9)
== END | disposition home or self-care (01) ==
LOC: LAB 11:02
PROVIDERS: ATTEND Internal Medicine Cardiovascular Disease
DX: N18.31 Chronic kidney disease, stage 3a (principal); D63.1 Anemia in chronic kidney disease; E21.3 Hyperparathyroidism, unspecified; R10.9 Unspecified abdominal pain; R82.90 Unspecified abnormal findings in urine
CPT/HCPCS: 36415; 80048; 81003; 82306; 82570; 83970; 84156; 84550; 85025

== ENCOUNTER → 2020-10-11 | Outpatient (CLI) | payer OTHER | END | disposition home or self-care (01) | LOC: Rad HDHVI 15:02 | PROVIDERS: ATTEND Internal Medicine Cardiovascular Disease | DX: M62.58 Muscle wasting and atrophy, not elsewhere classified, other site (principal); M46.1 Sacroiliitis, not elsewhere classified; M79.89 Other specified soft tissue disorders | CPT/HCPCS: 73700 ==